=== PATIENT | female | born 1980 | race African-American/Black ===

== ENCOUNTER 2021-04-05 11:40 | Observation (INO) | payer SELFPAY ==
[2021-04-05 12:14] LABS: BASO % 4.7 % (0-2.0); EOS % 2.1 % (0-4.5); HEMATOCRIT 41.7 % (32.4-45.2); HEMOGLOBIN 13.8 GM/dl (10.7-15.3); LYMPH % 12.8 % (8-40); MCH 24.9 pg (25.7-33.7); MCHC 33.1 g/dl (32.0-36.0); MEAN CELL VOLUME 75.3 fl (80-96); MEAN PLT VOLUME 8.4 fl (7.5-11.1); MONO % 3.4 % (3.8-10.2); PLATELET COUNT 265 10^3/uL (134-434); RBC 5.54 M/mm3 (3.60-5.2); RDW 14.4 % (11.6-15.6); WHITE BLOOD COUNT 7.3 K/mm3 (4.0-10.8)
[2021-04-05 12:17] LABS: INR 1.27 (0.82-1.09); PROTHROMBIN TIME (PATIENT) 14.1 SEC (10.2-13.0)
[2021-04-05 12:35] LABS: BILIRUBIN,TOTAL 0.7 mg/dl (0.2-1); CALCIUM 8.7 mg/dl (8.5-10); CREATININE 0.7 mg/dl (0.55-1.3); MAGNESIUM 1.8 mg/dL (1.8-2.4); TOT PROT 6.8 g/dl (6.4-8.2)
[2021-04-05] MEDS ORDERED: MAG HYDROX/AL HYDROX/SIMETH -MYLANTA- ORAL SUSPENSION PO ONE (13:32)
[2021-04-05] MEDS ORDERED: MAG HYDROX/AL HYDROX/SIMETH 30 ML UNIT-DOSE CUP ONE (13:45)
[2021-04-05] MEDS ORDERED: ACETAMINOPHEN 1000 MG/100 ML VIAL IVPB ONE (17:51)
[2021-04-05] MEDS ORDERED: ASPIRIN 81 MG CHEWABLE TABLETS ONE (17:52)
[2021-04-05] MEDS ORDERED: ACETAMINOPHEN INJECTION 100 ML IVPB ONE (17:52)
[2021-04-05] MEDS ORDERED: ASPIRIN COATED 81 MG TABLET.EC PO SCH (18:00)
[2021-04-05 20:37] VITALS: BMI 30.1
[2021-04-06 08:31] LABS: ALBUMIN 3.4 g/dl (3.4-5.0); BILIRUBIN,TOTAL 0.6 mg/dl (0.2-1); CALCIUM 8.6 mg/dl (8.5-10); CREATININE 0.8 mg/dl (0.55-1.3); TOT PROT 6.1 g/dl (6.4-8.2)
[2021-04-06 08:38] LABS: BASO % 4.1 % (0-2.0); EOS % 3.7 % (0-4.5); HEMATOCRIT 39.8 % (32.4-45.2); HEMOGLOBIN 12.6 GM/dl (10.7-15.3); MCH 23.7 pg (25.7-33.7); MCHC 31.8 g/dl (32.0-36.0); MEAN CELL VOLUME 74.4 fl (80-96); MEAN PLT VOLUME 8.2 fl (7.5-11.1); MONO % 8.5 % (3.8-10.2); NEUT % 66.7 % (42.8-82.8); PLATELET COUNT 259 10^3/uL (134-434); RBC 5.34 M/mm3 (3.60-5.2); RDW 13.9 % (11.6-15.6); WHITE BLOOD COUNT 6.5 K/mm3 (4.0-10.8)
[2021-04-06 08:49] LABS: ADD RBC MORPHOLOGY YES
[2021-04-06] MEDS ORDERED: ASPIRIN COATED 81 MG TABLET.EC PO SCH (10:00)
[2021-04-06 11:45] LABS: ANISOCYTOSIS 1+
[2021-04-06 11:46] LABS: OVALOCYTE 1+; PLATELET ESTIMATE ADEQUATE
[2021-04-06 14:04] VITALS: BP 105/64; PULSE 70; TEMP 98.7
== END 2021-04-06 17:55 | disposition home or self-care (01) ==
LOC: FER 11:40 → FM/S 16:18
PROVIDERS: ADMIT Internal Medicine; ATTEND Nurse Practitioner Acute Care
PROC: 3E033NZ Introduction of Analgesics, Hypnotics, Sedatives into Peripheral Vein, Percutaneous Approach (ICD-10-PCS; principal; 2021-04-05)
DX: R07.9 Chest pain, unspecified (principal); Z20.822 Contact with and (suspected) exposure to COVID-19; E66.8 Other obesity; Z68.30 Body mass index [BMI] 30.0-30.9, adult
CPT/HCPCS: 36415; 71045-TC-FY; 80053; 80061; 82550; 83735; 84443; 84484; 84703; 85025; 85610; 93005; 93306-TC; 99285-25; C9803; G0378; J0131; U0003; U0005